=== PATIENT | female | born 1985 | race Hispanic/Latino ===

== ENCOUNTER 2019-09-07 21:40 | Emergency (ER) | payer OTHER ==
[2019-09-07 22:17] LABS: BASOPHILS % (AUTO) 0.5 % (0.0-5.0); EOSINOPHILS % (AUTO) 5.6 % (0.0-8.0); HEMATOCRIT 31.8 % (36-48); LYMPHOCYTES % (AUTO) 26.9 % (21.0-51.0); MEAN CORPUSCULAR HEMOGLOBIN 26.3 pg (27.0-33.0); MEAN CORPUSCULAR HGB CONC 32.7 g/dL (32.0-36.0); MEAN CORPUSCULAR VOLUME 80.5 fL (79-99); MONOCYTES % (AUTO) 10.6 % (3.0-13.0); NEUTROPHILS % (AUTO) 55.7 % (40.0-77.0); PLATELET COUNT (AUTO) 264 K/uL (130-400); RED BLOOD CELL COUNT(AUTO) 3.95 MIL/uL (4.00-5.50); RED CELL DISTRIBUTION WIDTH 15.6 % (11.0-15.5); WHITE BLOOD COUNT (AUTO) 8.8 K/uL (4.8-10.8)
[2019-09-07 22:18] LABS: APPEARANCE,URINE Cloudy (CLEAR); BILIRUBIN,URINE Negative (NEGATIVE); COLOR,URINE Orange (YELLOW); GLUCOSE, URINE (UA) Negative (NEGATIVE); KETONES,URINE Negative (NEGATIVE); LEUKOCYTE ESTERASE ,URINE Trace (NEGATIVE); NITRATE,URINE Negative (NEGATIVE); OCCULT BLOOD,URINE Large (NEGATIVE); PROTEIN,URINE Trace mg/dL (NEGATIVE)
[2019-09-07 22:37] LABS: CREATININE 0.7 mg/dL (0.5-1.5); POTASSIUM 3.8 mmol/L (3.5-5.1)
[2019-09-07 22:46] LABS: BACTERIA,URINE Few /HPF (None Seen); RBC,URINE 26-50 /HPF (0-1)
[2019-09-07 23:03] LABS: ALBUMIN 3.6 g/dL (3.5-5.0); BILIRUBIN,TOTAL 0.2 mg/dL (0.2-1.0); TOTAL PROTEIN, SERUM 7.3 g/dL (6.0-8.3)
== END 2019-09-08 00:21 | disposition home or self-care (01) ==
LOC: EDH 21:40
DX: O03.4 Incomplete spontaneous abortion without complication (principal); Z72.0 Tobacco use; Z98.890 Other specified postprocedural states; Z3A.10 10 weeks gestation of pregnancy
CPT/HCPCS: 36415; 76801; 80053; 81001; 84702; 85025; 86900; 86901

== ENCOUNTER 2019-09-09 01:54 | Inpatient (IN) | payer MEDICAID, OTHER ==
[~2019-09-09] VITALS: Ht 154.9 cm; Wt 73.5 kg
[2019-09-09] VITALS (9 sets, daily range): BP systolic 85–121; BP diastolic 43–67
[2019-09-09 02:48] LABS: BASOPHILS % (AUTO) 0.3 % (0.0-5.0); EOSINOPHILS % (AUTO) 3.2 % (0.0-8.0); HEMATOCRIT 25.9 % (36-48); LYMPHOCYTES % (AUTO) 19.4 % (21.0-51.0); MEAN CORPUSCULAR HEMOGLOBIN 26.2 pg (27.0-33.0); MEAN CORPUSCULAR HGB CONC 32.4 g/dL (32.0-36.0); MEAN CORPUSCULAR VOLUME 80.7 fL (79-99); MONOCYTES % (AUTO) 7.5 % (3.0-13.0); PLATELET COUNT (AUTO) 233 K/uL (130-400); RED BLOOD CELL COUNT(AUTO) 3.21 MIL/uL (4.00-5.50); RED CELL DISTRIBUTION WIDTH 15.7 % (11.0-15.5); WHITE BLOOD COUNT (AUTO) 10.7 K/uL (4.8-10.8)
[2019-09-09 02:57] LABS: CREATININE 0.7 mg/dL (0.5-1.5)
[2019-09-09 03:23] LABS: ALBUMIN 3.4 g/dL (3.5-5.0); BILIRUBIN,TOTAL 0.1 mg/dL (0.2-1.0)
[2019-09-09] MEDS ORDERED: LACTATED RINGERS 1000ML 1,000 ML IV SCH (04:00)
[2019-09-09] MEDS ORDERED: LACTATED RINGERS 1000ML 1,000 ML IV ONE (04:20)
[2019-09-09] MEDS ORDERED: LACTATED RINGERS 1000ML 1,000 ML IV PRN (05:24)
[2019-09-09] MEDS ORDERED: LIDOCAINE PF 2% 5ML ABBOJECT ONE (05:30)
[2019-09-09] MEDS ORDERED: ONDANSETRON HCL 4 MG/2 ML VIAL ONE (05:30)
[2019-09-09] MEDS ORDERED: NEOSTIGMINE 5MG/5ML SYR IV ONE (05:31)
[2019-09-09] MEDS ORDERED: PROPOFOL 10 MG/ML 20ML VIAL IV ONE (05:31)
[2019-09-09] MEDS ORDERED: DEXAMETHASONE SOD PHOSPHATE 10MG/ML 1ML VIAL ONE (05:31)
[2019-09-09] MEDS ORDERED: MIDAZOLAM HCL 1 MG/ML 2ML VIAL ONE ×2 (05:31→05:59)
[2019-09-09] MEDS ORDERED: ROCURONIUM 10MG/1ML SYR 10 MG/ML ML ONE (05:31)
[2019-09-09] MEDS ORDERED: FENTANYL CITRATE PF 50 MCG/1 ML 2ML VIAL ONE (05:31)
[2019-09-09] MEDS ORDERED: GLYCOPYRROLATE 1 MG/5 ML SYRINGE ONE (05:31)
--- NOTE | 2019-09-09 07:30 | NUR ---
REPORT RECEIVED FROM KENNA JIN L/D AND PATIENT CARE TRANSFERED AT THIS TIME. PATIENT IS DUE TO VOID AND WAS BROUGHT BY STRETCHER SINCE SHE HAD AN EPIDURAL AND CANNOT MOVE LOWER EXTREMITIES. WAS TRANSFERED FROM STRETCHER TO BED.
[2019-09-09] MEDS ORDERED: IBUPROFEN 600 MG TABLET PO PRN (07:45)
[2019-09-09] MEDS ORDERED: DOCUSATE SODIUM 100 MG CAP PO SCH (09:00)
[2019-09-09] MEDS ORDERED: DiphenhydrAMINE HCL 50 MG/ML VIAL IVP PRN (10:30)
[2019-09-09] MEDS ORDERED: ONDANSETRON HCL 4 MG/2 ML VIAL IVP PRN (10:30)
[2019-09-09] MEDS ORDERED: NALOXONE HCL 0.4 MG/1 ML ML IVP PRN ×2 (10:30)
--- NOTE | 2019-09-09 13:00 | NUR ---
PATIENT WAS ABLE TO VOID 400CC OF YELLOW URINE. TOLERATED ACTIVITY WELL.
--- NOTE | 2019-09-09 15:15 | NUR ---
PIV TO RIGHT FOREARM REMOVED AND SITE WNL AND SALINE LOCK TO LEFT HAND REMOVED AT THIS TIME ALSO FOR DISCHARGE. DISCHARGE INSTRUCTIONS WERE GIVEN TO PATIENT IN [facility] AND WAS INSTRUCTED TO FOLLOW UP WITH SANDRINE SOLARES ON 09/16/2019 AT 10:10AM IN DR. RAMOS OFFICE. PATIENT VERBALIZED UNDERSTANDING AND WAS INSTRUCTED TO GO 30 MINUTES BEFORE APPOINTMENT REQUIRED FOR NEW PATIENTS.
--- NOTE | 2019-09-09 17:00 | NUR ---
PATIENT WAS TAKEN VIA W/C TO FAMILY VEHICLE AND WAS DISCHARGED IN STABLE CONDITION TO HER FAMILY.
== END 2019-09-09 17:00 | disposition home or self-care (01) | DRG 770 ==
LOC: EDH 01:54 → EDHIP 01:55 → LDH 04:53 → WSH 07:30
PROVIDERS: ADMIT Obstetrics & Gynecology; ATTEND Obstetrics & Gynecology
PROC: 10D17ZZ Extraction of Products of Conception, Retained, Via Natural or Artificial Opening (ICD-10-PCS; principal; 2019-09-09 06:00)
DX: O03.1 Delayed or excessive hemorrhage following incomplete spontaneous abortion (principal)
CPT/HCPCS: 36415; 76801; 80053; 81001; 84702; 85025; 86850; 86900; 86901; 87040; A4351; G0378; J1100; J2001; J2250; J2405; J2704; J2710; J3010; J3490; J7030; J7120